=== PATIENT | female | born 1945 | race Caucasian/White ===

== ENCOUNTER 2016-08-15 18:18 | Inpatient (IN) | payer MEDICARE, OTHER ==
[2016-08-19] MEDS ORDERED: LOVENOX DP40 MG/0.4 SQ (09:02)
[2016-08-19] MEDS ORDERED: ZOLOFT DPS50 MG PO (09:02)
[2016-08-19] MEDS ORDERED: TOPROL XL DPS25 MG PO ×2 (09:02)
[2016-08-19] MEDS ORDERED: SENOKOT S1 TAB PO (09:02)
[2016-08-19] MEDS ORDERED: MILK OF MAGNESI10 ML PO (09:04)
[2016-08-19] MEDS ORDERED: HYDROCODON-ACE1 EAC4 PO (09:04)
[2016-08-19] MEDS ORDERED: NOVOLOG100 UNIT/2 SQ (09:04)
[2016-08-19] MEDS ORDERED: DULCOLAX-DPS10 MG PR (09:05)
[2016-08-19] MEDS ORDERED: BONIVA150 MG PO (09:05)
[2016-08-19] MEDS ORDERED: TYLENOL DPS325 MG PO (09:05)
[2016-08-19] MEDS ORDERED: PRAVACHOL10 MG PO (09:06)
[2016-08-19] MEDS ORDERED: PRILOSEC DPS20 MG PO (09:06)
[2016-08-19] MEDS ORDERED: BACLOFEN10 MG PO (09:07)
[2016-08-19] MEDS ORDERED: ADVAIR DIS1 PUFF/DO1 IH (09:07)
[2016-08-19] MEDS ORDERED: CENTRUM SILVER1 EAC1 PO (09:08)
== END 2016-08-18 11:50 | DRG 493 ==
DX: S82.851A Displaced trimalleolar fracture of right lower leg, initial encounter for closed fracture (principal); N20.2 Calculus of kidney with calculus of ureter; L89.300 Pressure ulcer of unspecified buttock, unstageable; J44.9 Chronic obstructive pulmonary disease, unspecified; M62.82 Rhabdomyolysis; E11.9 Type 2 diabetes mellitus without complications; E86.9 Volume depletion, unspecified; W19.XXXA Unspecified fall, initial encounter; E86.0 Dehydration; E78.5 Hyperlipidemia, unspecified; R79.89 Other specified abnormal findings of blood chemistry; J45.909 Unspecified asthma, uncomplicated; K21.9 Gastro-esophageal reflux disease without esophagitis; R41.83 Borderline intellectual functioning; M19.90 Unspecified osteoarthritis, unspecified site; F32.9 Major depressive disorder, single episode, unspecified; I10 Essential (primary) hypertension; Z87.891 Personal history of nicotine dependence